=== PATIENT | male | born 1970 | race African-American/Black ===

== ENCOUNTER 2016-08-07 14:52 | Emergency (ER) | payer OTHER ==
[~2016-08-07 14:52] MED LIST: FLEXERIL10 M1 PO; TORADOL10 MG PO
== END 2016-08-07 17:28 | disposition home or self-care (01) ==
LOC: CFTX 14:52 → CED 14:52 → CFTX 16:58
DX: S00.86XA Insect bite (nonvenomous) of other part of head, initial encounter (principal); W57.XXXA Bitten or stung by nonvenomous insect and other nonvenomous arthropods, initial encounter
CPT/HCPCS: 99283